=== PATIENT | female | born 1985 ===

== ENCOUNTER 2020-06-13 10:09 | Inpatient (IN) | payer OTHER ==
[~2020-06-13] VITALS: Ht 152.4 cm; Wt 62.4 kg
[2020-06-13 10:32] VITALS: BP 159/87
[2020-06-13 10:49] LABS: BASOPHILS % (AUTO) 1 % (0-1); EOSINOPHILS % (AUTO) 1 % (1-7); LYMPHOCYTES % (AUTO) 25 % (22-44); MD NO; MEAN CORPUSCULAR HEMOGLOBIN 33.4 pg (27.0-34.8); MEAN CORPUSCULAR HGB CONC 33.1 g/dL (32.4-35.8); MEAN PLATELET VOLUME 8.2 fL (7.4-10.4); MONOCYTES % (AUTO) 6 % (2-9); NEUTROPHILS % (AUTO) 69 % (42-75); PLATELET COUNT 265 x10^3/uL (130-400); RED BLOOD COUNT 3.75 x10^6/uL (3.82-5.3); RED CELL DISTRIBUTION WIDTH 12.8 % (9.6-15.2)
[2020-06-13 10:58] LABS: ALANINE AMINOTRANSFERASE 24 U/L (12-78); ALBUMIN 2.7 g/dL (3.4-5.0); ANION GAP 7 mmol/L (5-15); CALCIUM 8.4 mg/dL (8.5-10.1); CHLORIDE 108 mmol/L (98-107)
[2020-06-13 11:01] LABS: MICROSCOPIC INDICATED
[2020-06-13 11:01] LABS: ALKALINE PHOSPHATASE 68 U/L (45-117); BILIRUBIN,TOTAL 0.2 mg/dL (0.2-1.0); TOTAL PROTEIN 6.3 g/dL (6.4-8.2)
[2020-06-13 11:02] LABS: BILIRUBIN, DIRECT < 0.1 mg/dL (0.1-0.2)
[2020-06-13] MEDS ORDERED: BETAMETHASONE 6 MG/ML, 5ML IM ONE (12:35)
[2020-06-13] MEDS ORDERED: LABETALOL 100 MG TABLET ONE ×2 (12:35→21:43)
[2020-06-13] MEDS: BETAMETHASONE 6 MG/ML, 5ML IM SCH (12:37)
[2020-06-13] MEDS ORDERED: PLEASE ENTER ALLERGIES MC SCH (13:00)
[2020-06-13] MEDS ORDERED: LABETALOL 100 MG TABLET PO SCH (18:00)
[2020-06-13] MEDS: LABETALOL 100 MG TABLET PO SCH (21:47)
[2020-06-14] VITALS (9 sets, daily range): BP systolic 143–170; BP diastolic 67–88
[2020-06-14 05:34] LABS: BASOPHILS % (AUTO) 1 % (0-1); EOSINOPHILS % (AUTO) 0 % (1-7); LYMPHOCYTES % (AUTO) 11 % (22-44); MEAN CORPUSCULAR HEMOGLOBIN 33.2 pg (27.0-34.8); MEAN CORPUSCULAR HGB CONC 33.1 g/dL (32.4-35.8); MEAN PLATELET VOLUME 8.8 fL (7.4-10.4); MONOCYTES % (AUTO) 2 % (2-9); NEUTROPHILS % (AUTO) 87 % (42-75); PLATELET COUNT 259 x10^3/uL (130-400); RED BLOOD COUNT 3.63 x10^6/uL (3.82-5.3); RED CELL DISTRIBUTION WIDTH 13.2 % (9.6-15.2)
[2020-06-14 05:38] LABS: MD NO
[2020-06-14 05:42] LABS: ALBUMIN 2.5 g/dL (3.4-5.0); ANION GAP 9 mmol/L (5-15); CALCIUM 8.4 mg/dL (8.5-10.1); CHLORIDE 111 mmol/L (98-107)
[2020-06-14 05:45] LABS: ALANINE AMINOTRANSFERASE 23 U/L (12-78); ALKALINE PHOSPHATASE 59 U/L (45-117); BILIRUBIN,TOTAL 0.2 mg/dL (0.2-1.0); CREATININE 0.76 mg/dL (0.55-1.02); TOTAL PROTEIN 6.2 g/dL (6.4-8.2)
[2020-06-14] MEDS: PRENATAL VIT/IRON/FA 1 EACH TABLET PO SCH (08:00)
[2020-06-14] MEDS ORDERED: LABETALOL 100 MG TABLET ONE (08:08)
[2020-06-14] MEDS: LABETALOL 100 MG TABLET PO SCH (08:13)
[2020-06-14] MEDS ORDERED: PRENATAL VIT/IRON/FA 1 EACH TABLET HOMEMEDPO SCH (09:00)
[2020-06-14] MEDS ORDERED: BETAMETHASONE 6 MG/ML, 5ML IM ONE (12:26)
[2020-06-14] MEDS: BETAMETHASONE 6 MG/ML, 5ML IM SCH (12:32)
[2020-06-14] MEDS ORDERED: LABETALOL 200 MG TABLET ONE (21:07)
[2020-06-14] MEDS: LABETALOL 200 MG TABLET PO SCH (21:09)
[2020-06-15 01:16] VITALS: BP 155/74
[2020-06-15 03:35] VITALS: BP 158/86
[2020-06-15] MEDS ORDERED: SODIUM CHLORIDE NASAL SPRAY 45ML BOTTLE NAS PRN (06:00)
[2020-06-15 07:06] LABS: ALANINE AMINOTRANSFERASE 24 U/L (12-78); ALBUMIN 2.7 g/dL (3.4-5.0); ANION GAP 10 mmol/L (5-15); CHLORIDE 109 mmol/L (98-107); CREATININE 0.92 mg/dL (0.55-1.02)
[2020-06-15 07:08] LABS: ALKALINE PHOSPHATASE 60 U/L (45-117); BILIRUBIN,TOTAL 0.3 mg/dL (0.2-1.0); TOTAL PROTEIN 6.3 g/dL (6.4-8.2)
[2020-06-15 07:11] LABS: BASOPHILS % (AUTO) 0 % (0-1); EOSINOPHILS % (AUTO) 0 % (1-7); LYMPHOCYTES % (AUTO) 11 % (22-44); MEAN CORPUSCULAR HEMOGLOBIN 33.2 pg (27.0-34.8); MEAN CORPUSCULAR HGB CONC 32.8 g/dL (32.4-35.8); MEAN PLATELET VOLUME 8.6 fL (7.4-10.4); MONOCYTES % (AUTO) 3 % (2-9); NEUTROPHILS % (AUTO) 85 % (42-75); PLATELET COUNT 268 x10^3/uL (130-400); RED BLOOD COUNT 3.56 x10^6/uL (3.82-5.3); RED CELL DISTRIBUTION WIDTH 13.2 % (9.6-15.2)
[2020-06-15 07:21] LABS: MD NO
[2020-06-15] MEDS ORDERED: LABETALOL 200 MG TABLET ONE ×3 (08:39→21:45)
[2020-06-15] MEDS: LABETALOL 200 MG TABLET PO SCH ×3 (08:47→21:47)
[2020-06-15 21:32] VITALS: BP 162/88
[2020-06-15] MEDS ORDERED: LABETALOL 200 MG TABLET PO ONE (21:45)
[2020-06-16] MEDS ORDERED: hydrALAzine 20 MG/ML, 1ML ONE (00:22)
[2020-06-16] MEDS ORDERED: hydrALAzine 20 MG/ML, 1ML IVPush ONE ×2 (00:30)
[2020-06-16] MEDS ORDERED: LABETALOL 5MG/ML, 20ML IVPush ONE (00:30)
[2020-06-16] MEDS ORDERED: MAGNESIUM SULF. PMX 20GM/500ML 500 ML IV ONE ×3 (04:54→21:25)
[2020-06-16] MEDS ORDERED: LABETALOL 200 MG TABLET PO SCH (09:00)
[2020-06-16] MEDS ORDERED: LABETALOL 200 MG TABLET ONE (09:00)
[2020-06-16] MEDS: PRENATAL VIT/IRON/FA 1 EACH TABLET PO SCH (09:00)
[2020-06-16] MEDS ORDERED: PRENATAL VIT/IRON/FA 1 EACH TABLET ONE (09:01)
[2020-06-16 09:17] LABS: BASOPHILS % (AUTO) 0 % (0-1); EOSINOPHILS % (AUTO) 0 % (1-7); LYMPHOCYTES % (AUTO) 17 % (22-44); MEAN CORPUSCULAR HEMOGLOBIN 33.2 pg (27.0-34.8); MEAN CORPUSCULAR HGB CONC 33.2 g/dL (32.4-35.8); MEAN PLATELET VOLUME 8.6 fL (7.4-10.4); MONOCYTES % (AUTO) 6 % (2-9); NEUTROPHILS % (AUTO) 76 % (42-75); PLATELET COUNT 257 x10^3/uL (130-400); RED BLOOD COUNT 3.62 x10^6/uL (3.82-5.3); RED CELL DISTRIBUTION WIDTH 13.5 % (9.6-15.2)
[2020-06-16 09:23] LABS: MD NO
[2020-06-16 09:30] LABS: ALBUMIN 2.7 g/dL (3.4-5.0); ANION GAP 7 mmol/L (5-15); CALCIUM 8.2 mg/dL (8.5-10.1); CHLORIDE 110 mmol/L (98-107)
[2020-06-16 09:34] LABS: ALANINE AMINOTRANSFERASE 25 U/L (12-78); ALKALINE PHOSPHATASE 59 U/L (45-117); BILIRUBIN,TOTAL 0.3 mg/dL (0.2-1.0); CREATININE 0.73 mg/dL (0.55-1.02); TOTAL PROTEIN 6.3 g/dL (6.4-8.2)
[2020-06-16 09:37] LABS: BILIRUBIN, DIRECT < 0.1 mg/dL (0.1-0.2)
[2020-06-16] MEDS ORDERED: MAGNESIUM SULFATE PMX 4GM/100M 100 ML ONE (10:47)
[2020-06-16] MEDS ORDERED: ONDANSETRON 2MG/ML, 2ML ONE (10:47)
[2020-06-16] MEDS ORDERED: ONDANSETRON 2MG/ML, 2ML IVPush PRN (11:00)
[2020-06-16] MEDS ORDERED: MAGNESIUM SULFATE PMX 4GM/100M 100 ML IVPB ONE (11:00)
[2020-06-16] MEDS: LACTATED RINGERS 1,000 ML IV SCH (11:16)
[2020-06-16] MEDS: MAGNESIUM SULF. PMX 20GM/500ML 500 ML IV SCH ×2 (11:34→21:00)
[2020-06-16] MEDS ORDERED: SODIUM CHLORIDE FLUSH 10ML SYR IVF SCH (21:00)
[2020-06-16] MEDS ORDERED: DOCUSATE 100 MG CAPSULE PO PRN (21:00)
[2020-06-16] MEDS: LABETALOL 200 MG TABLET PO SCH (21:24)
[2020-06-17] MEDS ORDERED: MAGNESIUM SULF. PMX 20GM/500ML 500 ML IV SCH (00:27)
[2020-06-17] MEDS: LACTATED RINGERS 1,000 ML IV SCH (00:34)
[2020-06-17 06:10] LABS: BASOPHILS % (AUTO) 0 % (0-1); EOSINOPHILS % (AUTO) 0 % (1-7); LYMPHOCYTES % (AUTO) 15 % (22-44); MEAN CORPUSCULAR HEMOGLOBIN 33.8 pg (27.0-34.8); MEAN CORPUSCULAR HGB CONC 33.3 g/dL (32.4-35.8); MEAN PLATELET VOLUME 8.8 fL (7.4-10.4); MONOCYTES % (AUTO) 7 % (2-9); NEUTROPHILS % (AUTO) 77 % (42-75); PLATELET COUNT 251 x10^3/uL (130-400); RED BLOOD COUNT 3.44 x10^6/uL (3.82-5.3); RED CELL DISTRIBUTION WIDTH 13.1 % (9.6-15.2)
[2020-06-17 06:18] LABS: ALBUMIN 2.5 g/dL (3.4-5.0); ANION GAP 8 mmol/L (5-15); CALCIUM 6.4 mg/dL (8.5-10.1); CHLORIDE 106 mmol/L (98-107)
[2020-06-17 06:20] LABS: MD NO
[2020-06-17 06:23] LABS: ALANINE AMINOTRANSFERASE 26 U/L (12-78); ALKALINE PHOSPHATASE 52 U/L (45-117); BILIRUBIN,TOTAL 0.3 mg/dL (0.2-1.0); CREATININE 0.67 mg/dL (0.55-1.02); TOTAL PROTEIN 5.9 g/dL (6.4-8.2)
[2020-06-17] MEDS ORDERED: D5%-LACTATED RINGERS 1,000 ML IV SCH (07:00)
[2020-06-17] MEDS ORDERED: LABETALOL 200 MG TABLET ONE ×3 (08:35→23:11)
[2020-06-17] MEDS: LABETALOL 200 MG TABLET PO SCH ×2 (08:39→21:03)
[2020-06-17] MEDS: PRENATAL VIT/IRON/FA 1 EACH TABLET HOMEMEDPO SCH (09:00)
[2020-06-17] MEDS ORDERED: PRENATAL VIT/IRON/FA 1 EACH TABLET HOMEMEDPO SCH (09:00)
[2020-06-17] MEDS: SODIUM CHLORIDE FLUSH 10ML SYR IVF SCH ×2 (10:03→21:00)
[2020-06-17] MEDS ORDERED: LABETALOL 200 MG TABLET PO ONE (23:30)
[2020-06-18] MEDS ORDERED: LABETALOL 200 MG TABLET ONE ×2 (08:47→20:30)
[2020-06-18] MEDS: LABETALOL 200 MG TABLET PO SCH ×2 (08:53→20:33)
[2020-06-18] MEDS: PRENATAL VIT/IRON/FA 1 EACH TABLET HOMEMEDPO SCH (09:00)
[2020-06-18 11:00] LABS: BASOPHILS % (AUTO) 0 % (0-1); EOSINOPHILS % (AUTO) 0 % (1-7); LYMPHOCYTES % (AUTO) 18 % (22-44); MD NO; MEAN CORPUSCULAR HEMOGLOBIN 33.3 pg (27.0-34.8); MEAN CORPUSCULAR HGB CONC 32.8 g/dL (32.4-35.8); MEAN PLATELET VOLUME 8.5 fL (7.4-10.4); MONOCYTES % (AUTO) 10 % (2-9); NEUTROPHILS % (AUTO) 72 % (42-75); PLATELET COUNT 257 x10^3/uL (130-400)
[2020-06-18 11:12] LABS: ALANINE AMINOTRANSFERASE 19 U/L (12-78); ALBUMIN 2.5 g/dL (3.4-5.0); ANION GAP 5 mmol/L (5-15); CALCIUM 8.2 mg/dL (8.5-10.1); CHLORIDE 109 mmol/L (98-107); CREATININE 0.72 mg/dL (0.55-1.02)
[2020-06-18 11:13] LABS: BILIRUBIN, DIRECT < 0.1 mg/dL (0.1-0.2)
[2020-06-18 11:14] LABS: ALKALINE PHOSPHATASE 58 U/L (45-117); BILIRUBIN,TOTAL 0.3 mg/dL (0.2-1.0); TOTAL PROTEIN 6.1 g/dL (6.4-8.2)
[2020-06-18] MEDS ORDERED: hydrALAzine 20 MG/ML, 1ML ONE (19:52)
[2020-06-18] MEDS ORDERED: hydrALAzine 20 MG/ML, 1ML IVPush ONE ×4 (20:00)
[2020-06-18] MEDS ORDERED: LABETALOL 5MG/ML, 20ML IVPush ONE (20:00)
[2020-06-18] MEDS: SODIUM CHLORIDE FLUSH 10ML SYR IVF SCH (21:00)
[2020-06-19] MEDS ORDERED: LABETALOL 200 MG TABLET ONE ×2 (08:35→20:01)
[2020-06-19] MEDS: LABETALOL 200 MG TABLET PO SCH ×2 (08:37→20:55)
[2020-06-19] MEDS: PRENATAL VIT/IRON/FA 1 EACH TABLET HOMEMEDPO SCH (08:38)
[2020-06-19] MEDS ORDERED: CETIRIZINE 10 MG TABLET PO SCH (09:00)
[2020-06-19] MEDS ORDERED: niFEDipine ER 30 MG TABLET.ER ONE (15:51)
[2020-06-19] MEDS: niFEDipine ER 30 MG TABLET.ER PO SCH (16:04)
[2020-06-19 22:31] VITALS: BP 135/87
[2020-06-20 08:06] LABS: BASOPHILS % (AUTO) 1 % (0-1); EOSINOPHILS % (AUTO) 1 % (1-7); LYMPHOCYTES % (AUTO) 22 % (22-44); MEAN CORPUSCULAR HEMOGLOBIN 33.8 pg (27.0-34.8); MEAN CORPUSCULAR HGB CONC 33.1 g/dL (32.4-35.8); MEAN PLATELET VOLUME 8.7 fL (7.4-10.4); MONOCYTES % (AUTO) 7 % (2-9); NEUTROPHILS % (AUTO) 71 % (42-75); PLATELET COUNT 279 x10^3/uL (130-400); RED BLOOD COUNT 3.82 x10^6/uL (3.82-5.3); RED CELL DISTRIBUTION WIDTH 13.2 % (9.6-15.2)
[2020-06-20 08:07] LABS: MD NO
[2020-06-20 08:17] LABS: ALANINE AMINOTRANSFERASE 22 U/L (12-78); ALBUMIN 2.7 g/dL (3.4-5.0); ANION GAP 9 mmol/L (5-15); CALCIUM 8.2 mg/dL (8.5-10.1); CHLORIDE 106 mmol/L (98-107); CREATININE 0.72 mg/dL (0.55-1.02)
[2020-06-20 08:20] LABS: ALKALINE PHOSPHATASE 59 U/L (45-117); BILIRUBIN,TOTAL 0.5 mg/dL (0.2-1.0); TOTAL PROTEIN 6.4 g/dL (6.4-8.2)
[2020-06-20] MEDS ORDERED: LABETALOL 200 MG TABLET ONE ×2 (08:53→21:06)
[2020-06-20] MEDS: LABETALOL 200 MG TABLET PO SCH ×2 (08:55→21:09)
[2020-06-20 08:58] VITALS: BP 127/82
[2020-06-20] MEDS: SODIUM CHLORIDE FLUSH 10ML SYR IVF SCH (09:00)
[2020-06-20] MEDS ORDERED: niFEDipine ER 30 MG TABLET.ER ONE (15:56)
[2020-06-20] MEDS: niFEDipine ER 30 MG TABLET.ER PO SCH (15:59)
[2020-06-20 16:16] VITALS: BP 142/89
[2020-06-20 18:24] VITALS: BP 137/88
[2020-06-20 19:17] LABS: BASOPHILS % (AUTO) 1 % (0-1); EOSINOPHILS % (AUTO) 1 % (1-7); LYMPHOCYTES % (AUTO) 21 % (22-44); MEAN CORPUSCULAR HEMOGLOBIN 34.2 pg (27.0-34.8); MEAN CORPUSCULAR HGB CONC 33.6 g/dL (32.4-35.8); MEAN PLATELET VOLUME 8.5 fL (7.4-10.4); MONOCYTES % (AUTO) 7 % (2-9); NEUTROPHILS % (AUTO) 71 % (42-75); PLATELET COUNT 276 x10^3/uL (130-400); RED BLOOD COUNT 3.63 x10^6/uL (3.82-5.3); RED CELL DISTRIBUTION WIDTH 13.2 % (9.6-15.2)
[2020-06-20 19:24] LABS: ALBUMIN 2.6 g/dL (3.4-5.0); ANION GAP 8 mmol/L (5-15); CALCIUM 8.8 mg/dL (8.5-10.1); CHLORIDE 108 mmol/L (98-107)
[2020-06-20 19:27] LABS: ALANINE AMINOTRANSFERASE 22 U/L (12-78); ALKALINE PHOSPHATASE 71 U/L (45-117); BILIRUBIN,TOTAL 0.3 mg/dL (0.2-1.0); CREATININE 0.81 mg/dL (0.55-1.02); TOTAL PROTEIN 6.2 g/dL (6.4-8.2)
[2020-06-20 19:28] LABS: MD NO
[2020-06-21] MEDS: CETIRIZINE 10 MG TABLET HOMEMEDPO SCH (09:00)
[2020-06-21] MEDS ORDERED: LABETALOL 200 MG TABLET ONE ×2 (09:11→20:44)
[2020-06-21] MEDS: LABETALOL 200 MG TABLET PO SCH ×2 (09:13→20:48)
[2020-06-21] MEDS: SODIUM CHLORIDE FLUSH 10ML SYR IVF SCH (09:14)
[2020-06-21] MEDS ORDERED: niFEDipine ER 30 MG TABLET.ER ONE (16:20)
[2020-06-21] MEDS: niFEDipine ER 30 MG TABLET.ER PO SCH (16:21)
[2020-06-22 05:42] LABS: BASOPHILS % (AUTO) 1 % (0-1); EOSINOPHILS % (AUTO) 1 % (1-7); LYMPHOCYTES % (AUTO) 24 % (22-44); MD NO; MEAN CORPUSCULAR HGB CONC 33.8 g/dL (32.4-35.8); MEAN PLATELET VOLUME 8.8 fL (7.4-10.4); MONOCYTES % (AUTO) 8 % (2-9); NEUTROPHILS % (AUTO) 67 % (42-75); PLATELET COUNT 270 x10^3/uL (130-400); RED BLOOD COUNT 3.74 x10^6/uL (3.82-5.3); RED CELL DISTRIBUTION WIDTH 12.9 % (9.6-15.2)
[2020-06-22 05:43] LABS: CHLORIDE 107 mmol/L (98-107)
[2020-06-22 05:49] LABS: ALANINE AMINOTRANSFERASE 18 U/L (12-78); ALBUMIN 2.7 g/dL (3.4-5.0); ALKALINE PHOSPHATASE 59 U/L (45-117); ANION GAP 8 mmol/L (5-15); BILIRUBIN,TOTAL 0.6 mg/dL (0.2-1.0); CALCIUM 8.6 mg/dL (8.5-10.1); CREATININE 0.77 mg/dL (0.55-1.02); TOTAL PROTEIN 6.4 g/dL (6.4-8.2)
[2020-06-22 05:54] LABS: BILIRUBIN, DIRECT < 0.1 mg/dL (0.1-0.2)
[2020-06-22 06:20] LABS: MICROSCOPIC AUTO
[2020-06-22] MEDS ORDERED: NITROFURANTOIN (MACROBID) 100 MG CAPSULE ONE ×2 (07:56→20:48)
[2020-06-22] MEDS ORDERED: LABETALOL 200 MG TABLET ONE ×2 (07:56→20:48)
[2020-06-22] MEDS: LABETALOL 200 MG TABLET PO SCH ×2 (08:48→20:51)
[2020-06-22] MEDS: NITROFURANTOIN (MACROBID) 100 MG CAPSULE PO SCH ×2 (08:49→20:50)
[2020-06-22] MEDS: SODIUM CHLORIDE FLUSH 10ML SYR IVF SCH ×3 (08:49→21:00)
[2020-06-22] MEDS: CETIRIZINE 10 MG TABLET HOMEMEDPO SCH (09:00)
[2020-06-22] MEDS: PRENATAL VIT/IRON/FA 1 EACH TABLET HOMEMEDPO SCH (09:00)
[2020-06-22 09:29] VITALS: BP 104/72
[2020-06-22] MEDS ORDERED: niFEDipine ER 30 MG TABLET.ER ONE (15:29)
[2020-06-22] MEDS: niFEDipine ER 30 MG TABLET.ER PO SCH (15:48)
[2020-06-22 20:12] VITALS: BP 141/83
[2020-06-23] MEDS ORDERED: LABETALOL 200 MG TABLET ONE ×2 (08:53→20:28)
[2020-06-23] MEDS ORDERED: NITROFURANTOIN (MACROBID) 100 MG CAPSULE ONE ×2 (08:53→20:29)
[2020-06-23] MEDS ORDERED: niFEDipine ER 30 MG TABLET.ER ONE ×2 (08:53→15:57)
[2020-06-23] MEDS: NITROFURANTOIN (MACROBID) 100 MG CAPSULE PO SCH ×2 (08:56→20:35)
[2020-06-23] MEDS: LABETALOL 200 MG TABLET PO SCH ×2 (08:57→20:35)
[2020-06-23] MEDS: SODIUM CHLORIDE FLUSH 10ML SYR IVF SCH ×3 (08:57→21:00)
[2020-06-23] MEDS: PRENATAL VIT/IRON/FA 1 EACH TABLET HOMEMEDPO SCH (09:00)
[2020-06-23] MEDS: CETIRIZINE 10 MG TABLET HOMEMEDPO SCH (09:00)
[2020-06-23] MEDS: niFEDipine ER 30 MG TABLET.ER PO SCH (15:59)
[2020-06-24 06:24] LABS: ALANINE AMINOTRANSFERASE 19 U/L (12-78); ALBUMIN 2.7 g/dL (3.4-5.0); ANION GAP 9 mmol/L (5-15); BASOPHILS % (AUTO) 0 % (0-1); CALCIUM 8.1 mg/dL (8.5-10.1); CHLORIDE 109 mmol/L (98-107); EOSINOPHILS % (AUTO) 3 % (1-7); LYMPHOCYTES % (AUTO) 22 % (22-44); MEAN CORPUSCULAR HEMOGLOBIN 34.3 pg (27.0-34.8); MEAN CORPUSCULAR HGB CONC 33.6 g/dL (32.4-35.8); MEAN PLATELET VOLUME 8.5 fL (7.4-10.4); MONOCYTES % (AUTO) 7 % (2-9); NEUTROPHILS % (AUTO) 68 % (42-75); PLATELET COUNT 257 x10^3/uL (130-400); RED CELL DISTRIBUTION WIDTH 13.1 % (9.6-15.2)
[2020-06-24 06:26] LABS: ALKALINE PHOSPHATASE 67 U/L (45-117); BILIRUBIN,TOTAL 0.5 mg/dL (0.2-1.0); TOTAL PROTEIN 6.3 g/dL (6.4-8.2)
[2020-06-24 06:44] LABS: MD NO
[2020-06-24] MEDS ORDERED: LABETALOL 200 MG TABLET ONE ×2 (08:34→21:05)
[2020-06-24] MEDS ORDERED: NITROFURANTOIN (MACROBID) 100 MG CAPSULE ONE ×2 (08:35→21:06)
[2020-06-24] MEDS ORDERED: PRENATAL VIT/IRON/FA 1 EACH TABLET ONE (08:35)
[2020-06-24] MEDS: NITROFURANTOIN (MACROBID) 100 MG CAPSULE PO SCH ×2 (08:54→21:18)
[2020-06-24] MEDS: LABETALOL 200 MG TABLET PO SCH ×2 (08:54→21:18)
[2020-06-24 08:55] VITALS: BP 120/79
[2020-06-24] MEDS: PRENATAL VIT/IRON/FA 1 EACH TABLET HOMEMEDPO SCH (09:00)
[2020-06-24] MEDS: SODIUM CHLORIDE FLUSH 10ML SYR IVF SCH ×3 (09:00→22:46)
[2020-06-24] MEDS: CETIRIZINE 10 MG TABLET HOMEMEDPO SCH (09:00)
[2020-06-24] MEDS ORDERED: niFEDipine ER 30 MG TABLET.ER ONE (15:49)
[2020-06-24] MEDS: niFEDipine ER 30 MG TABLET.ER PO SCH (16:19)
[2020-06-25] MEDS ORDERED: NITROFURANTOIN (MACROBID) 100 MG CAPSULE ONE ×2 (07:36→21:24)
[2020-06-25] MEDS: NITROFURANTOIN (MACROBID) 100 MG CAPSULE PO SCH ×2 (07:39→21:27)
[2020-06-25] MEDS ORDERED: LABETALOL 200 MG TABLET ONE ×2 (08:16→21:24)
[2020-06-25] MEDS: LABETALOL 200 MG TABLET PO SCH ×2 (08:17→21:27)
[2020-06-25] MEDS: PRENATAL VIT/IRON/FA 1 EACH TABLET HOMEMEDPO SCH (09:00)
[2020-06-25] MEDS: CETIRIZINE 10 MG TABLET HOMEMEDPO SCH (09:00)
[2020-06-25] MEDS: SODIUM CHLORIDE FLUSH 10ML SYR IVF SCH ×2 (09:00→21:00)
[2020-06-25] MEDS ORDERED: DIPH,PERTUSS(ACELL),TET VAC/PF NC IM-VACC ONE ×2 (14:21→15:00)
[2020-06-25] MEDS ORDERED: niFEDipine ER 30 MG TABLET.ER ONE (15:27)
[2020-06-25] MEDS: niFEDipine ER 30 MG TABLET.ER PO SCH (15:28)
[2020-06-26 06:08] LABS: BASOPHILS % (AUTO) 1 % (0-1); EOSINOPHILS % (AUTO) 2 % (1-7); LYMPHOCYTES % (AUTO) 21 % (22-44); MEAN CORPUSCULAR HGB CONC 33.4 g/dL (32.4-35.8); MEAN PLATELET VOLUME 8.5 fL (7.4-10.4); MONOCYTES % (AUTO) 7 % (2-9); NEUTROPHILS % (AUTO) 70 % (42-75); PLATELET COUNT 252 x10^3/uL (130-400); RED BLOOD COUNT 3.64 x10^6/uL (3.82-5.3)
[2020-06-26 06:09] LABS: MD NO
[2020-06-26 06:17] LABS: ALBUMIN 2.6 g/dL (3.4-5.0); ANION GAP 7 mmol/L (5-15); CALCIUM 8.2 mg/dL (8.5-10.1); CHLORIDE 109 mmol/L (98-107)
[2020-06-26 06:22] LABS: ALANINE AMINOTRANSFERASE 18 U/L (12-78); ALKALINE PHOSPHATASE 70 U/L (45-117); BILIRUBIN, DIRECT 0.1 mg/dL (0.1-0.2); BILIRUBIN,TOTAL 0.7 mg/dL (0.2-1.0); CREATININE 0.72 mg/dL (0.55-1.02); TOTAL PROTEIN 6.2 g/dL (6.4-8.2)
[2020-06-26] MEDS: SODIUM CHLORIDE FLUSH 10ML SYR IVF SCH ×3 (09:00→21:19)
[2020-06-26] MEDS: PRENATAL VIT/IRON/FA 1 EACH TABLET HOMEMEDPO SCH ×2 (09:00→21:19)
[2020-06-26] MEDS: NITROFURANTOIN (MACROBID) 100 MG CAPSULE PO SCH ×2 (09:29→21:17)
[2020-06-26] MEDS: LABETALOL 200 MG TABLET PO SCH ×2 (09:29→21:23)
[2020-06-26] MEDS: niFEDipine ER 30 MG TABLET.ER PO SCH (15:58)
[2020-06-26 20:00] VITALS: BP 153/93
[2020-06-26] MEDS: CETIRIZINE 10 MG TABLET HOMEMEDPO SCH (21:19)
[2020-06-27] MEDS: BETAMETHASONE 6 MG/ML, 5ML IM SCH (00:14)
[2020-06-27] MEDS: PRENATAL VIT/IRON/FA 1 EACH TABLET HOMEMEDPO SCH (09:00)
[2020-06-27] MEDS: SODIUM CHLORIDE FLUSH 10ML SYR IVF SCH ×2 (09:00→21:00)
[2020-06-27] MEDS: CETIRIZINE 10 MG TABLET HOMEMEDPO SCH (09:13)
[2020-06-27] MEDS: NITROFURANTOIN (MACROBID) 100 MG CAPSULE PO SCH ×2 (09:17→23:29)
[2020-06-27] MEDS: LABETALOL 200 MG TABLET PO SCH ×2 (09:17→21:00)
[2020-06-27] MEDS ORDERED: niFEDipine ER 30 MG TABLET.ER PO SCH (16:00)
[2020-06-27] MEDS ORDERED: LABETALOL 5MG/ML, 20ML ONE (17:50)
[2020-06-27] MEDS ORDERED: LABETALOL 5MG/ML, 20ML IVPush PRN ×3 (18:00)
[2020-06-27] MEDS ORDERED: hydrALAzine 20 MG/ML, 1ML IVPush ONE (18:00)
[2020-06-27] MEDS ORDERED: MAGNESIUM SULF. PMX 20GM/500ML 500 ML IV ONE (18:49)
[2020-06-27] MEDS ORDERED: METOCLOPRAMIDE 5 MG/ML, 2ML ONE (18:55)
[2020-06-27] MEDS ORDERED: SODIUM CITRATE/CITRIC ACID 15 ML UDC ONE (18:55)
[2020-06-27] MEDS ORDERED: SODIUM CITRATE/CITRIC ACID 30 ML UDC PO ONE (19:00)
[2020-06-27] MEDS ORDERED: LACTATED RINGERS 1,000 ML IV PRN (19:00)
[2020-06-27] MEDS ORDERED: CALCIUM CARBONATE 500 MG TAB.CHEW PO PRN ×2 (19:00→20:00)
[2020-06-27] MEDS ORDERED: METOCLOPRAMIDE 5 MG/ML, 2ML IV ONE (19:00)
[2020-06-27] MEDS ORDERED: MAGNESIUM SULFATE PMX 4GM/100M 100 ML IVPB ONE (19:00)
[2020-06-27 19:16] LABS: ALANINE AMINOTRANSFERASE 22 U/L (12-78); ALBUMIN 2.8 g/dL (3.4-5.0); ANION GAP 8 mmol/L (5-15); CALCIUM 8.7 mg/dL (8.5-10.1); CHLORIDE 109 mmol/L (98-107); CREATININE 0.85 mg/dL (0.55-1.02)
[2020-06-27 19:18] LABS: ALKALINE PHOSPHATASE 90 U/L (45-117); BILIRUBIN,TOTAL 0.1 mg/dL (0.2-1.0); TOTAL PROTEIN 6.8 g/dL (6.4-8.2)
[2020-06-27] MEDS: MAGNESIUM SULF. PMX 20GM/500ML 500 ML IV SCH (19:23)
[2020-06-27] MEDS ORDERED: LACTATED RINGERS 1,000 ML IVBOLUS ONE (19:30)
[2020-06-27] MEDS ORDERED: OXYTOCIN 10 UNITS/ML, 1ML ONE (19:35)
[2020-06-27] MEDS ORDERED: ONDANSETRON 2MG/ML, 2ML ONE (19:35)
[2020-06-27] MEDS ORDERED: HYDROmorphone 2 MG/ML, 1ML ONE (19:35)
[2020-06-27] MEDS ORDERED: FENTANYL PF 100 MCG/2ML ONE (19:35)
[2020-06-27] MEDS ORDERED: CEFAZOLIN 1,000 MG ONE (19:35)
[2020-06-27 19:37] LABS: BASOPHILS % (AUTO) 0 % (0-1); EOSINOPHILS % (AUTO) 0 % (1-7); LYMPHOCYTES % (AUTO) 12 % (22-44); MEAN CORPUSCULAR HEMOGLOBIN 33.7 pg (27.0-34.8); MEAN CORPUSCULAR HGB CONC 33.8 g/dL (32.4-35.8); MEAN PLATELET VOLUME 9.2 fL (7.4-10.4); MONOCYTES % (AUTO) 3 % (2-9); NEUTROPHILS % (AUTO) 85 % (42-75); PLATELET COUNT 263 x10^3/uL (130-400); RED BLOOD COUNT 3.77 x10^6/uL (3.82-5.3); RED CELL DISTRIBUTION WIDTH 12.9 % (9.6-15.2)
[2020-06-27] MEDS ORDERED: MISOPROSTOL 200 MCG TABLET ONE (19:42)
[2020-06-27] MEDS ORDERED: OXYTOCIN 30U/ 0.9% NaCL 500ML 500 ML ONE (19:42)
[2020-06-27] MEDS ORDERED: ACETAMINOPHEN 325 MG TABLET PO PRN ×2 (20:00)
[2020-06-27] MEDS ORDERED: OXYTOCIN 30U/ 0.9% NaCL 500ML 500 ML IV SCH (20:00)
[2020-06-27] MEDS ORDERED: morphine SULFATE 10 MG/ML, 1ML IVPush PRN ×2 (20:00)
[2020-06-27] MEDS ORDERED: DIPH,PERTUSS(ACELL),TET VAC/PF NC IM-VACC PRN (20:00)
[2020-06-27] MEDS ORDERED: RHOGAM FROM BLOOD BANK 1 NOTE EA IM/IV ONE (20:00)
[2020-06-27] MEDS ORDERED: SIMETHICONE 80 MG CHEW TAB PO PRN (20:00)
[2020-06-27] MEDS ORDERED: MEASLES,MUMPS&RUBELLA VACC/PF 0.5 ML SQ-VACC PRN (20:00)
[2020-06-27] MEDS ORDERED: LACTATED RINGERS 1,000 ML IV SCH (20:00)
[2020-06-27] MEDS ORDERED: MISOPROSTOL 200 MCG TABLET PR PRN (20:00)
[2020-06-27] MEDS ORDERED: OXYcodone/APAP 5/325MG TABLET PO PRN (20:00)
[2020-06-27] MEDS ORDERED: ONDANSETRON 2MG/ML, 2ML IV PRN (20:00)
[2020-06-27 20:10] LABS: MD SCAN
[2020-06-27] MEDS: KETOROLAC 30 MG/1 ML IV SCH (20:30)
[2020-06-27] MEDS: LACTATED RINGERS 1,000 ML IV SCH ×2 (20:55→21:09)
[2020-06-28] MEDS: BETAMETHASONE 6 MG/ML, 5ML IM SCH
[2020-06-28 00:01] VITALS: BP 145/85
[2020-06-28] MEDS: OXYcodone/APAP 5/325MG TABLET PO PRN ×6 (00:10→21:03)
[2020-06-28] MEDS: KETOROLAC 30 MG/1 ML IV SCH ×4 (02:15→19:51)
[2020-06-28 02:20] VITALS: BP 138/82
[2020-06-28] MEDS: MAGNESIUM SULF. PMX 20GM/500ML 500 ML IV SCH ×2 (03:28→12:48)
[2020-06-28] MEDS: LACTATED RINGERS 1,000 ML IV SCH ×3 (06:00→16:17)
[2020-06-28 06:14] LABS: BASOPHILS % (AUTO) 0 % (0-1); EOSINOPHILS % (AUTO) 0 % (1-7); LYMPHOCYTES % (AUTO) 8 % (22-44); MEAN CORPUSCULAR HEMOGLOBIN 33.9 pg (27.0-34.8); MEAN CORPUSCULAR HGB CONC 33.3 g/dL (32.4-35.8); MEAN PLATELET VOLUME 8.6 fL (7.4-10.4); MONOCYTES % (AUTO) 5 % (2-9); NEUTROPHILS % (AUTO) 87 % (42-75); PLATELET COUNT 242 x10^3/uL (130-400); RED CELL DISTRIBUTION WIDTH 13.1 % (9.6-15.2)
[2020-06-28 07:19] LABS: MD SCAN
[2020-06-28] MEDS: LABETALOL 200 MG TABLET PO SCH (09:00)
[2020-06-28] MEDS: PRENATAL VIT/IRON/FA 1 EACH TABLET PO SCH (09:00)
[2020-06-28] MEDS: SODIUM CHLORIDE FLUSH 10ML SYR IVF SCH (09:00)
[2020-06-28] MEDS: PRENATAL VIT/IRON/FA 1 EACH TABLET HOMEMEDPO SCH (09:27)
[2020-06-28] MEDS: CETIRIZINE 10 MG TABLET HOMEMEDPO SCH (09:27)
[2020-06-28] MEDS: NITROFURANTOIN (MACROBID) 100 MG CAPSULE PO SCH ×2 (09:29→21:04)
[2020-06-28] MEDS ORDERED: LABETALOL 100 MG TABLET PO STA (12:52)
[2020-06-28] MEDS ORDERED: LABETALOL 100 MG TABLET ONE (12:56)
[2020-06-28] MEDS ORDERED: LABETALOL 100 MG TABLET PO ONE (13:30)
[2020-06-28] MEDS ORDERED: LABETALOL 100 MG TABLET PO SCH (21:00)
[2020-06-28] MEDS: LABETALOL 100 MG TABLET PO SCH (21:04)
[2020-06-29] VITALS (13 sets, daily range): BP systolic 101–178; BP diastolic 72–106
[2020-06-29] MEDS: MAGNESIUM SULF. PMX 20GM/500ML 500 ML IV SCH ×2 (01:00→11:00)
[2020-06-29] MEDS: OXYcodone/APAP 5/325MG TABLET PO PRN ×6 (01:19→21:22)
[2020-06-29] MEDS: LACTATED RINGERS 1,000 ML IV SCH ×3 (02:00→22:00)
[2020-06-29] MEDS: KETOROLAC 30 MG/1 ML IV SCH ×3 (02:36→13:55)
[2020-06-29] MEDS: DOCUSATE 100 MG CAPSULE PO PRN ×2 (08:51→20:16)
[2020-06-29] MEDS: LABETALOL 100 MG TABLET PO SCH (08:52)
[2020-06-29] MEDS: PRENATAL VIT/IRON/FA 1 EACH TABLET PO SCH (09:00)
[2020-06-29] MEDS: NITROFURANTOIN (MACROBID) 100 MG CAPSULE PO SCH (09:00)
[2020-06-29] MEDS: CETIRIZINE 10 MG TABLET HOMEMEDPO SCH (09:00)
[2020-06-29] MEDS: PRENATAL VIT/IRON/FA 1 EACH TABLET HOMEMEDPO SCH (09:00)
[2020-06-29] MEDS ORDERED: LABETALOL 100 MG TABLET PO SCH (16:00)
[2020-06-29] MEDS ORDERED: niFEDipine ER 60 MG TABLET.ER PO ONE (17:00)
[2020-06-29] MEDS ORDERED: niFEDipine ER 60 MG TABLET.ER PO SCH (17:00)
[2020-06-29] MEDS ORDERED: hydrALAzine 20 MG/ML, 1ML IV ONE (17:00)
[2020-06-29] MEDS ORDERED: hydrALAzine 20 MG/ML, 1ML ONE (17:01)
[2020-06-29] MEDS: IBUPROFEN 600 MG TABLET PO PRN (20:16)
[2020-06-29] MEDS ORDERED: LABETALOL 300 MG TABLET PO SCH (21:00)
[2020-06-29] MEDS ORDERED: LABETALOL 200 MG TABLET PO SCH (21:00)
[2020-06-30] VITALS (13 sets, daily range): BP systolic 123–157; BP diastolic 82–103
[2020-06-30] MEDS: OXYcodone/APAP 5/325MG TABLET PO PRN ×2 (01:12→05:15)
[2020-06-30] MEDS: LACTATED RINGERS 1,000 ML IV SCH ×2 (08:00→18:00)
[2020-06-30] MEDS: DOCUSATE 100 MG CAPSULE PO PRN ×2 (08:31→20:56)
[2020-06-30] MEDS: niFEDipine ER 90 MG TAB.ER.24 PO SCH (08:31)
[2020-06-30] MEDS: IBUPROFEN 600 MG TABLET PO PRN ×3 (08:33→20:56)
[2020-06-30] MEDS: PRENATAL VIT/IRON/FA 1 EACH TABLET HOMEMEDPO SCH (09:00)
[2020-06-30] MEDS ORDERED: LABETALOL 300 MG TABLET PO SCH (09:00)
[2020-06-30] MEDS: CETIRIZINE 10 MG TABLET HOMEMEDPO SCH (09:00)
[2020-07-01 01:00] VITALS: BP 142/103
[2020-07-01] MEDS: IBUPROFEN 600 MG TABLET PO PRN ×2 (03:02→09:10)
[2020-07-01] MEDS: LACTATED RINGERS 1,000 ML IV SCH (04:00)
[2020-07-01 05:15] VITALS: BP 118/78
[2020-07-01 08:45] VITALS: BP 119/90
[2020-07-01] MEDS: CETIRIZINE 10 MG TABLET HOMEMEDPO SCH (09:00)
[2020-07-01] MEDS: PRENATAL VIT/IRON/FA 1 EACH TABLET HOMEMEDPO SCH (09:00)
[2020-07-01] MEDS: DOCUSATE 100 MG CAPSULE PO PRN (09:10)
[2020-07-01] MEDS: niFEDipine ER 90 MG TAB.ER.24 PO SCH (09:10)
== END 2020-07-01 09:35 | disposition home or self-care (01) | DRG 787 ==
LOC: LDOP 10:09 → EDIP 16:07 → 2NE 16:16 → OBSVTOIN 06-14 08:45 → 2NW 06-28 21:48
PROVIDERS: ADMIT Obstetrics & Gynecology; ATTEND Obstetrics & Gynecology
PROC: 10D00Z1 Extraction of Products of Conception, Low, Open Approach (ICD-10-PCS; principal; 2020-06-27)
DX: O32.1XX0 Maternal care for breech presentation, not applicable or unspecified (principal); O44.43 Low lying placenta NOS or without hemorrhage, third trimester; N13.30 Unspecified hydronephrosis; O36.5930 Maternal care for other known or suspected poor fetal growth, third trimester, not applicable or unspecified; N84.0 Polyp of corpus uteri; O13.4 Gestational [pregnancy-induced] hypertension without significant proteinuria, complicating childbirth; Z37.0 Single live birth; Z3A.32 32 weeks gestation of pregnancy; Z90.710 Acquired absence of both cervix and uterus; Z20.822 Contact with and (suspected) exposure to COVID-19; Z88.0 Allergy status to penicillin; Z88.2 Allergy status to sulfonamides; O14.14 Severe pre-eclampsia complicating childbirth
CPT/HCPCS: 36415; 76819; 80053; 81001; 82248; 82570; 83615; 83735; 84156; 84550; 85025; 86592; 86850; 86900; 87081; 87086; 87635; 88307; 90715; G0378; J0690; J0702; J1170; J1885; J2405; J3010; J0360; J2590; J2765; J3475; J7120; J7121